=== PATIENT | male | born 1955 | race Caucasian/White ===

== ENCOUNTER → 2018-03-07 | Outpatient (CLI) | payer OTHER | LOC: FIMAGING 09:44 | PROVIDERS: ATTEND Orthopaedic Surgery | DX: M17.12 Unilateral primary osteoarthritis, left knee (principal) ==

== ENCOUNTER 2018-03-14 13:45 | Observation (INO) | payer OTHER ==
[2018-05-14] MEDS ORDERED: ROPIVACAINE 0.2% 80 MG, EPINEPHrine 0.2 MG, KETOROLAC TROMETHAMINE 30 MG in SYRINGE 0 ML IU ONE (06:00)
[2018-05-14] MEDS ORDERED: TRANEXAMIC ACID 3,000 MG in NS (SYRINGE) 50 ML IRR ONE (06:00)
--- NOTE | 2018-05-14 06:23 | PDHPUP ---
History & Physical Update H&P update statement: This history and physical update is based on an assessment of the patient which was completed after admission or registration (within 24 hours), but prior to the surgery/procedure. H&P update: H&P reviewed & patient examined, no change in patient's condition since H&P completed
[2018-05-14] MEDS ORDERED: VANCOMYCIN 1 GM VIAL ONE (07:20)
[2018-05-14] MEDS ORDERED: TRANEXAMIC ACID 3,000 MG/50 ML BAG IRR ONE (07:20)
[2018-05-14] MEDS ORDERED: DEXAMETHASONE 4 MG/ML VIAL IVP ONE (09:16)
[2018-05-14] MEDS ORDERED: FAMOTIDINE 20 MG TAB PO ONE (09:16)
[2018-05-14] MEDS ORDERED: ACETAMINOPHEN 325 MG TAB PO ONE (09:16)
[2018-05-14] MEDS ORDERED: ceFAZolin 2 GM/DEXTROSE 100 ML IV ONE (09:16)
[2018-05-14] MEDS ORDERED: MIDAZOLAM 2 MG/2 ML VIAL ONE (10:51)
[2018-05-14] MEDS ORDERED: MIDAZOLAM 2 MG/2 ML VIAL IVP ONE (10:55)
--- NOTE | 2018-05-14 10:55 | PDANEPAE ---
ANE History of Present Illness 62 year with knee arthritis ANE Past Medical History - Cardiovascular History Hx Hypertension: Yes Hx Arrhythmias: No Hx Chest Pain: No Hx Coronary Artery / Peripheral Vascular Disease: No Hx CHF / Valvular Disease: No Hx Palpitations: No - Pulmonary History Hx COPD: No Hx Asthma/Reactive Airway Disease: No Hx Recent Upper Respiratory Infection: No Hx Oxygen in Use at Home: No Hx Sleep Apnea: No Sleep Apnea Screening Result - Last Documented: Positive - Neurologic History Hx Cerebrovascular Accident: No Hx Seizures: No Hx Dementia: No - Endocrine History Hx Diabetes: No - Renal History Hx Renal Disorders: No - Liver History Hx Hepatic Disorders: No - Neurological & Psychiatric Hx Hx Neurological and Psychiatric Disorders: Yes Neurological / Psychiatric History Comment: MS,anxiety, depression - Cancer History Hx Cancer: No - Congenital Disorder History Hx Congenital Disorders: No - GI History Hx Gastrointestinal Disorders: Yes Gastrointestinal History Comment: reflux - Other Health History Other Health History: none - Chronic Pain History Chronic Pain: Yes (MS, JOINT PAIN) - Surgical History Prior Surgeries: 3 previous knee surgeries. shoulder surgery. foot sx ANE Review of Systems Review of systems is: negative Review of Systems: - Exercise capacity METS (RN): 6 METS ANE Patient History - Allergies Allergies/Adverse Reactions: hydrocodone Allergy (Verified 05/14/18 09:38) Itching - Home Medications Home medications: home medication list seen and reviewed Home Medications: Albuterol [Proventil Inhaler HFA (*)] 1 - 2 puffs IH Q4H PRN 03/05/18 [Last Taken 04/14/18] Aspirin EC [Aspirin EC 81 mg (*)] 81 mg PO DAILY 03/05/18 [Last Taken 04/23/18] FLUoxetine [Prozac 20 MG (*)] 20 mg PO DAILY 03/05/18 [Last Taken 05/14/18 07:00 ] Ibuprofen/Famotidine [Duexis 800-26.6 mg Tablet] 1 each PO TID 03/05/18 [Last Taken 04/23/18] Losartan Potassium 100 mg PO DAILY 03/05/18 [Last Taken 05/14/18 07:00] Modafinil [Provigil] 200 mg PO BID 03/05/18 [Last Taken 05/14/18 07:00] Pregabalin [LYRICA] 200 mg PO BID 03/05/18 [Last Taken 05/14/18 07:30] Teriflunomide [Aubagio] 14 mg PO DAILY 03/05/18 [Last Taken 05/14/18 07:00] amLODIPine BESYLATE [Norvasc 10 mg (*)] 10 mg PO DAILY 03/05/18 [Last Taken 07:00] traZODone [traZODONE 50MG (*)] 50 mg PO HS 03/05/18 [Last Taken 05/13/18 22:00] - NPO status NPO Since - Liquids (Date): 05/14/16 NPO Since - Liquids (Time): 07:00 NPO Since - Solids (Date): 05/13/18 NPO Since - Solids (Time): 18:00 - Smoking Hx Smoking Status: Never smoked - Family Anes Hx Family Hx Anesthesia Complications: none ANE Labs/Vital Signs - Vital Signs Blood Pressure: 124/84 Heart Rate: 69 Respiratory Rate: 16 O2 Sat (%): 93 Height: 182.88 cm Weight: 93.894 kg ANE Physical Exam - Airway Neck exam: FROM Mallampati Score: Class 2 Mouth exam: normal dental/mouth exam - Pulmonary Pulmonary: no respiratory distress - Cardiovascular Cardiovascular: regular rate and rhythym - ASA Status ASA Status: III ANE Anesthesia Plan Anesthesia Plan: GA w LMA Regional Anesthesia: adductor canal FNB
[2018-05-14] MEDS ORDERED: PROPOFOL 200 MG/20 ML VIAL ONE (11:00)
[2018-05-14] MEDS ORDERED: fentaNYL 250 MCG/5 ML INJ ONE (11:00)
[2018-05-14] MEDS ORDERED: ROPIVACAINE HCL 150 MG/30 ML INJ ONE ×3 (11:54)
[2018-05-14] MEDS: HYDROmorphONE/DILAUDID 2 MG/ML INJ IVP PRN ×3 (12:26→13:09)
[2018-05-14] MEDS ORDERED: ONDANSETRON DISINTEGRATING 4 MG TAB PO PRN (12:27)
[2018-05-14] MEDS ORDERED: ONDANSETRON 4 MG/2 ML VIAL IVP PRN ×2 (12:27→12:30)
[2018-05-14] MEDS ORDERED: CYCLOBENZAPRINE 10 MG TAB PO PRN (12:27)
[2018-05-14] MEDS ORDERED: POLYETHYLENE GLYCOL 3350 17 GM PKT PO PRN (12:27)
[2018-05-14] MEDS ORDERED: LACTULOSE 20 GM/30 ML UDCUP PO PRN (12:27)
[2018-05-14] MEDS ORDERED: METOCLOPRAMIDE 10 MG/2 ML VIAL IVP PRN (12:27)
[2018-05-14] MEDS ORDERED: PROMETHAZINE HCL 25 MG/ML INJ IVP PRN ×2 (12:27→12:30)
[2018-05-14] MEDS ORDERED: BISACODYL 10 MG SUPP PR PRN (12:27)
[2018-05-14] MEDS ORDERED: diphenhydrAMINE 25 MG CAP PO PRN (12:27)
[2018-05-14] MEDS ORDERED: MAGNESIUM HYDROXIDE 30 ML UDCUP PO PRN (12:27)
[2018-05-14] MEDS ORDERED: PROMETHAZINE HCL 25 MG SUPPR PR PRN (12:27)
[2018-05-14] MEDS ORDERED: TEMAZEPAM 15 MG CAP PO PRN (12:27)
[2018-05-14] MEDS ORDERED: DIPHENOXYLATE/ATROPINE LOMOTIL 1 TAB PO PRN (12:27)
--- NOTE | 2018-05-14 12:27 | POSTOPPROG ---
Post Op Note Date of Operation: 05/14/18 Surgeon: Molly Grimaldo Environmental Manager: Paige Bill PA-C and Talya Grimaldo PA-C Anesthesiologist: dr. rodriguez Anesthesia: GET(General Endotracheal), Other (Specify) (adductor canal block) Pre-op Diagnosis: left knee OA Post-op Diagnosis: same Indication: left knee pain Procedure: left medial PKA Findings: severe medial knee OA Inf/Abcess present in the surg proc area at time of surgery?: No EBL: 50-100
[2018-05-14] MEDS ORDERED: ALBUTEROL 60 PUFFS/8 GM MDI IH PRN (12:29)
[2018-05-14] MEDS ORDERED: LR 1,000 ML IV SCH (12:30)
[2018-05-14] MEDS ORDERED: NALOXONE HCL 0.4 MG/ML INJ IVP PRN (12:30)
[2018-05-14] MEDS ORDERED: fentaNYL 100 MCG/2 ML INJ IVP PRN (12:30)
--- NOTE | 2018-05-14 12:31 | POSTANESTH ---
Post Anesthetic Evaluation Cardiovascular Status: Normal, Stable Respiratory Status: Normal, Stable Level of Consciousness/Mental Status: Can Participate in Eval Pain Control: Inadeq, Add Tx Required Nausea/Vomiting Control: Adequate, Prn Tx Ordered Complications Possibly Related to Anesthesia: None Noted
[2018-05-14] MEDS ORDERED: HYDROmorphONE/DILAUDID 2 MG/ML INJ ONE (12:32)
[2018-05-14] MEDS ORDERED: oxyCODONE IR 5 MG TAB ONE (12:51)
[2018-05-14] MEDS: oxyCODONE IR 5 MG TAB PO PRN ×4 (12:55→23:25)
[2018-05-14] MEDS: ceFAZolin 2 GM/DEXTROSE 100 ML IV SCH (17:26)
[2018-05-14] MEDS: ACETAMINOPHEN 325 MG TAB PO SCH ×2 (17:28→23:23)
[2018-05-14] MEDS: ASPIRIN 81 MG CHEWABLE TAB PO SCH (20:14)
[2018-05-14] MEDS: SENNOSIDES/DOCUSATE SODIUM TAB PO SCH (20:14)
[2018-05-14] MEDS: FAMOTIDINE 20 MG TAB PO SCH (20:15)
[2018-05-14] MEDS: PREGABALIN 100 MG CAP PO SCH (20:15)
[2018-05-14] MEDS ORDERED: traZODone 50 MG TAB PO SCH (21:00)
[2018-05-15] MEDS: ceFAZolin 2 GM/DEXTROSE 100 ML IV SCH (01:36)
[2018-05-15] MEDS: oxyCODONE IR 5 MG TAB PO PRN ×3 (05:31→12:46)
[2018-05-15] MEDS: ACETAMINOPHEN 325 MG TAB PO SCH ×2 (05:32→11:39)
[2018-05-15] MEDS ORDERED: MODAFINIL 100 MG TAB PO SCH (09:00)
[2018-05-15] MEDS ORDERED: Teriflunomide [Aubagio] 14 MG PO SCH (09:00)
[2018-05-15] MEDS ORDERED: FLUoxetine 20 MG CAP PO SCH (09:00)
[2018-05-15] MEDS ORDERED: LOSARTAN POTASSIUM 50 MG TAB PO SCH (09:00)
[2018-05-15] MEDS: PREGABALIN 100 MG CAP PO SCH (09:12)
[2018-05-15] MEDS: SENNOSIDES/DOCUSATE SODIUM TAB PO SCH (09:14)
[2018-05-15] MEDS: ASPIRIN 81 MG CHEWABLE TAB PO SCH (09:15)
[2018-05-15] MEDS: FAMOTIDINE 20 MG TAB PO SCH (09:15)
--- NOTE | 2018-05-15 11:18 | ASMTLACE ---
LACE Length of stay for Answers: 2 days current admission Acuity / Level of Answers: No Care: Did the patient have an inpatient admission? Comorbidities - select Answers: Opioid dependence all that apply / Chronic pain Other Notes: HTN; MS # of Emergency department Answers: 0 visits in the last 6 months Social determinants Answers: Mental health diagnosis (anxiety, depression, pers onality disorders, etc.) Score: 10 Date Signed: 05/15/2018 11:18 AM Electronically Signed By:LUANN Farfan
[2018-05-15 12:13] VITALS: BP 147/99
--- NOTE | 2018-05-15 13:19 | SOAPPROG ---
SOAP Progress Note Assessment/Plan: Assessment: Patient is doing well POD 1 s/p L med PKA Pain management: pain is well controlled on oral pain meds. VTE ppx: recommend aspirin 81 mg BID for 4 weeks, cont VESTA and SCDs Anemia: level is expected initially postop. Asymptomatic. Continue to monitor D/c planning: Patient has done better than anticipated and would like to be discharged to home today. Patient must be released from PT before discharge to home. Plan: 05/15/18 13:16 Subjective: Anatoly is doing well today, denies SOB, chest pain and n/v Objective: Vital Signs Temp Pulse Resp BP Pulse Ox 36.6 C 81 17 147/99 H 91 L 05/15/18 12:00 05/15/18 12:00 05/15/18 12:00 05/15/18 12:00 05/15/18 12:00 Laboratory Results 05/15/18 04:43 05/14/18 05/15/18 05/16/18 05:59 05:59 05:59 Intake Total 5 450 Output Total 1180 675 Balance 845 -225 LLE; incision dressing is clean and dry, NVI, +pf/df ICD10 Worksheet Patient Problems: Problems Problem Status Onset Primary localized osteoarthritis of left knee Acute
--- NOTE | 2018-05-15 15:22 | GDS ---
[f rep st] DISCHARGE SUMMARY ADMISSION DIAGNOSIS: Osteoarthritis of left medial knee. DISCHARGE DIAGNOSIS: Osteoarthritis of left medial knee. PROCEDURE: Left partial knee arthroplasty, medial, robot assisted. VTE PROPHYLAXIS: Recommend aspirin 81 mg twice daily for 4 weeks. BRIEF DESCRIPTION OF HOSPITAL STAY: Patient was admitted for an elective joint arthroplasty. The pa tient tolerated the procedure well and has passed physical therapy. The patient was given appropriat e antibiotic prophylaxis and venous thromboembolism prophylaxis. The patient's pain was well control led on oral pain medication, patient was holding down food, and had urinated. Decision was made to d ischarge the patient. The patient was given post-operative prescriptions pre-operatively. PLAN: To follow up with Dr. Grimaldo's office on June 05 at 3:30 p.m. /[id number]/MODL
--- NOTE | 2018-05-15 19:43 | GOP ---
[f rep st] OPERATIVE REPORT DATE OF OPERATION: 05/14/2018 SURGEON: China Grimaldo MD OUTSIDE SALES REPRESENTATIVE INSURANCE: 1. Talya Grimaldo PA-C. 2. Paige Bill PA-C. ANESTHESIA: Spinal. PREOPERATIVE DIAGNOSIS: Left knee osteoarthrosis. POSTOPERATIVE DIAGNOSIS: Left knee osteoarthrosis. PROCEDURE PERFORMED: Left medial partial knee arthroplasty with computer navigation, robotic assist. FINDINGS: ESTIMATED BLOOD LOSS: 30 cc INDICATIONS: The patient is a 62-year-old male with severe and progressive pain and deformity of the left knee unresponsive to conservative care. The risks and benefits of surgical intervention were explained in detail. DESCRIPTION OF PROCEDURE: The patient was brought to the operative room and placed on the table in the supine position. Spinal anesthesia was induced without difficulty. A pneumatic tourniquet was applied about the left proximal thigh, and the leg was prepped and draped in a sterile fashion. The leg pisano was applied. After exsanguination by elevation the tourniquet was inflated to 250 mmHg. Incision was made anterior medial from the tibial tuberosity to a point 2 cm proximal to the superior pole of the patella. Medial parapatellar arthrotomy was carried out from the superior pole of the patella and posteriorly in line with the fibers of the Type II VMO. The medial collateral ligament was elevated and the infrapatellar fat pad was resected. Attention was turned first to the distal aspect of the femur. After exposure of the femur, 2 half pins were placed for fixation of the femoral array. In a similar fashion, 2 pins were placed anteromedial on the tibia for fixation of the tibial array. External land marking and registration of the hip center was performed without difficulty. Internal femoral and tibial registration was carried out without difficulty and the femoral and tibial checkpoints were placed and verified for accuracy. Attention was turned to the femur. The foot print for the size 5 femoral component was cut with the emilio using the [employer] robotic system and verified for accuracy against the CT based plan. In a similar fashion, the saw was used to cut the footprint for the size 5 tibial component using the [employer] system and verified for accuracy against the CT based plan. The tibial articular surface was excised without difficulty. The knee was extended and the remnants of the medial and lateral meniscus were excised. The posterior capsule was injected with ropivacaine, epinephrine and Toradol. A size 5 tibial tray was positioned. Trial reduction was then carried out. There was excellent range of motion, alignment, and stability using the 5 x 8 mm polyethylene. All trials were then removed. The joint was thoroughly irrigated and carefully dried. The cemented components were implanted. The permanent 5 x 8 mm polyethylene was placed without difficulty. The tourniquet was deflated and all bleeders were coagulated. The wound was thoroughly irrigated and closed using interrupted sutures of 2-0 Vicryl for the joint capsule. The subcu was closed with 3-0 Vicryl and the skin with 4-0 Monocryl. Dermabond and Steri-Strips were applied followed by a compressive dressing. The patient was then moved from the operating room to the recovery room in good condition, having tolerated the procedure well. /[id number]/MODL MTDD
== END 2018-05-15 12:58 | disposition home or self-care (01) ==
LOC: F3N 05-14 08:58 → EDSTATUS 05-14 11:00 → F3N 05-14 13:31
PROVIDERS: ADMIT Orthopaedic Surgery; ATTEND Orthopaedic Surgery
PROC: 0SRD0JZ Replacement of Left Knee Joint with Synthetic Substitute, Open Approach (ICD-10-PCS; principal; 2018-05-14 11:00)
DX: M17.12 Unilateral primary osteoarthritis, left knee (principal)
CPT/HCPCS: 27446; 73560; 97110; 97116; 97161; 97530; G0378; C1713; J0171; J0690; J1100; J1170; J1885; J2250; J2704; J2795; J3010; J3370